=== PATIENT | female | born 1990 | race Caucasian/White ===

== ENCOUNTER 2017-05-06 20:56 | Emergency (ER) | payer OTHER ==
--- NOTE | 2017-05-06 21:05 | ED Physician Documentation ---
PD HPI ANIMAL BITE - Stated complaint Stated Complaint: CAT BITE - History obtained from History obtained from: Patient - History of Present Illness Location of injury(ies): LUE (distal forearm) Details of the event: Cat, Pet animal, Well appearing, Provoked Timing - onset: Today Worsened by: Palpating. 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: Endometriosis : Kidney stones, Other HEENT: None Psych: Depression, Anxiety, Bipolar disorder, Schizophrenia, Panic attacks Musculoskeletal: None Derm: None - Past Surgical History Past Surgical History: Yes General: Cholecystectomy /RF TEST ENGINEER: Tubal ligation, section HEENT: Tonsil/Adenoidectomy - Present Medications Home Medications: Ambulatory Orders Medication Instructions Recorded Confirmed Clonazepam 1 mg PO TID PRN 03/22/13 05/06/17 Prazosin HCl [Prazosin HCl] 15 mg PO BID 03/22/13 05/06/17 Alprazolam [Xanax] 1 mg PO TID PRN 05/12/15 05/06/17 Divalproex Sodium [Depakote] 250 mg PO BID 05/12/15 05/06/17 Sumatriptan Succinate [Imitrex] 50 mg PO Q4H PRN 05/12/15 05/06/17 Amox/Clav 875/125 [Augmentin] 1 each PO BID #10 tablet 05/06/17 Propranolol ER [Inderal LA] 50 mg PO DAILY 05/06/17 05/06/17 - Allergies Allergies/Adverse Reactions: Allergies Allergy/AdvReac Type Severity Reaction Status Date / Time No Known Drug Allergies Allergy Verified 05/12/15 11:55 - Social History Does the pt smoke?: No Smoking Status: Never smoker Does the pt drink ETOH?: Yes Does the pt have substance abuse?: No - Immunizations Immunizations are current?: Yes - POLST Patient has POLST: No PD ED PE NORMAL - Vitals Vital signs reviewed: Yes - General General: Alert and oriented X 3, No acute distress, Well developed/nourished - Derm Derm: Normal color, Warm and dry - Extremities Extremities: No tenderness to palpate, Normal ROM s pain, Other (left forearm with few small puncture wounds with mild tenderness and no bleeding. Holes are essentially closed. ) - Neuro Neuro: No motor deficit, No sensory deficit Results - Vitals Vitals: Oxygen O2 Source Room air PD MEDICAL DECISION MAKING - ED course Complexity details: considered differential (small puncture wounds. Discussed concern for infection. She needed tetanus booster as well. ), d/w patient Departure - Departure Disposition: 01 Home, Self Care Clinical Impression: Cat bite of left forearm Qualifiers: Encounter type: initial encounter Qualified Code(s): S51.852A - Open bite of left forearm, initial encounter Condition: Stable Record reviewed to determine appropriate education?: Yes Instructions: ED Bite Animal General Follow-Up: Kelsi Garcia DO [Primary Care Provider] - Prescriptions: Amox/Clav 875/125 [Augmentin] 1 each PO BID #10 tablet Comments: Augmentin twice daily for 5 days. Tylenol or Ibuprofen as needed for pains. Recheck if signs of infection. You got a Tetanus booster today as well. Discharge Date/Time: 05/06/17 21:34
[2017-05-06 21:10] VITALS: BP 145/92
[2017-05-06] MEDS ORDERED: TETANUS/DIPHTHERIA/PERTUSSIS 0.5 ML SYRINGE IM ONE ×2 (21:19→21:22)
[2017-05-06] MEDS ORDERED: AMOX/CLAV 875 MG/125 MG TABLET PO STA (21:19)
[2017-05-06] MEDS ORDERED: AMOX/CLAV 875 MG/125 MG TABLET PO ONE (21:21)
== END 2017-05-06 21:34 | disposition home or self-care (01) ==
LOC: ED 20:56
DX: S51.852A Open bite of left forearm, initial encounter (principal); W55.01XA Bitten by cat, initial encounter; Z23 Encounter for immunization
CPT/HCPCS: 90471; 90715; 99283; A9270

== ENCOUNTER 2018-05-29 13:07 | Emergency (ER) | payer OTHER ==
[2018-05-29 14:19] LABS: BILIRUBIN,URINE NEGATIVE (NEGATIVE); GLUCOSE, URINE (UA) NEGATIVE (NEGATIVE); KETONES,URINE (UA) NEGATIVE (NEGATIVE); LEUKOCYTE ESTERASE, URINE SMALL (NEGATIVE); NITRITE,URINE NEGATIVE (NEGATIVE); OCCULT BLOOD,URINE NEGATIVE (NEGATIVE); PH,URINE 8.5 PH (5.0-7.5); PROTEIN,URINE NEGATIVE (NEGATIVE); UROBILINOGEN,URINE 0.2 (NORMAL) E.U./dL (NORMAL)
[2018-05-29 14:21] LABS: CLARITY,URINE CLEAR (CLEAR); HCG UR QUAL NEGATIVE
[2018-05-29 14:47] LABS: BACTERIA,URINE Rare /HPF (None Seen); RBC,URINE 0-5 /HPF (0-5); SQUAMOUS EPITHELIAL CELL,UR MOD Squamous (<= Few)
[2018-05-29 14:48] LABS: AMORPHOUS SEDIMENT,UR Few /LPF
[2018-05-29] MEDS ORDERED: SODIUM CHLORIDE 0.9% 1,000 ML IV ONE (15:53)
--- NOTE | 2018-05-29 15:57 | ED Physician Documentation ---
PD HPI SYNCOPE - Stated complaint Stated Complaint: SEVERE DIZZINESS - Chief complaint Chief Complaint: Neuro - History obtained from History obtained from: Patient - History of Present Illness Timing - onset: Other (This is a 28-year-old woman with history of SVT on propranolol for same and a stable dose. 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 She did not sleep well last night and was sweating a lot and felt amped up. Today she felt lightheaded on standing and it never really went away after sitting down. There was no syncope. There is mild associated nausea but never any chest pain or trouble breathing.) Review of Systems Unable to obtain: Unresponsive Ten Systems: 10 systems reviewed and negative Constitutional: reports: Sweats. denies: Fever, Chills Cardiac: denies: Chest pain / pressure, Palpitations Respiratory: denies: Dyspnea, Cough GI: reports: Nausea. denies: Abdominal Pain, Vomiting : denies: Now [facility] PD PAST MEDICAL HISTORY - Past Medical History Cardiovascular: None Respiratory: None Endocrine/Autoimmune: None GI: None URGENT CARE: Endometriosis : Kidney stones, Other HEENT: None Psych: Depression, Anxiety, Bipolar disorder, Schizophrenia, Panic attacks Musculoskeletal: None Derm: None - Past Surgical History Past Surgical History: Yes General: Cholecystectomy /URGENT CARE: Tubal ligation, section HEENT: Tonsil/Adenoidectomy - Present Medications Home Medications: Ambulatory Orders Medication Instructions Recorded Confirmed Prazosin HCl [Prazosin HCl] 15 mg PO BID 03/22/13 05/06/17 Propranolol ER [Inderal LA] 50 mg PO DAILY 05/06/17 05/06/17 Lisdexamfetamine Dimesylate 05/29/18 [Vyvanse] Testosterone Cypionate 05/29/18 05/29/18 - Allergies Allergies/Adverse Reactions: Allergies Allergy/AdvReac Type Severity Reaction Status Date / Time No Known Drug Allergies Allergy Verified 05/29/18 13:29 - Social History Does the pt smoke?: No Smoking Status: Never smoker Does the pt drink ETOH?: Yes Does the pt have substance abuse?: No - Immunizations Immunizations are current?: Yes - POLST Patient has POLST: No PD ED PE NORMAL - Vitals Vital signs reviewed: Yes - General General: Alert and oriented X 3, No acute distress - HEENT HEENT: PERRL, EOMI - Neck Neck: Supple, no meningeal sign, No bony TTP - Cardiac Cardiac: RRR, No murmur - Respiratory Respiratory: No respiratory distress, Clear bilaterally - Abdomen Abdomen: Normal bowel sounds, Soft, Non tender - Back Back: No CVA TTP, No spinal TTP - Derm Derm: Normal color, Warm and dry - Extremities Extremities: No edema, No calf tenderness / cord - Neuro Neuro: Alert and oriented X 3, Normal speech - Psych Psych: Normal mood, Normal affect Results - Vitals Vitals: Vital Signs - 24 hr 05/29/18 13:25 Temperature 36 C L Heart Rate 73 Respiratory 20 Rate Blood Pressure 133/79 H O2 Saturation 97 Oxygen O2 Source Room air - EKG (time done) 1338 Rate: Rate (enter#) (68) Rhythm: NSR [place]: Normal Intervals: Normal CA QRS: Normal Ischemia: Normal ST segments Computer interpretation: Agree with computer - Labs Labs: Laboratory Tests 05/29/18 05/29/18 05/29/18 13:35 16:10 16:10 WBC 11.1 H RBC 5.26 Hgb 15.4 Hct 45.6 MCV 86.7 MCH 29.3 MCHC 33.8 RDW 14.2 Plt Count 259 MPV 9.1 Neut # (Auto) 6.3 Lymph # (Auto) 3.6 H [place] # (Auto) 0.7 Eos # (Auto) 0.4 Baso # (Auto) 0.1 Absolute Nucleated RBC 0.02 Nucleated RBC % 0.1 Sodium 136 Potassium 3.6 Chloride 101 Carbon Dioxide 26 Anion Gap 9.0 BUN 12 Creatinine 0.7 Estimated GFR (MDRD) 100 Glucose 92 Calcium 9.3 Total Bilirubin 0.5 AST 30 ALT 43 Alkaline Phosphatase 125 H Total Protein 7.7 Albumin 4.0 Globulin 3.7 Albumin/Globulin Ratio 1.1 Lipase 25 Urine Color YELLOW Urine Clarity CLEAR Urine pH 8.5 H Ur Specific [place] 1.015 Urine Protein NEGATIVE Urine Glucose (UA) NEGATIVE Urine Ketones NEGATIVE Urine Occult Blood NEGATIVE Urine Nitrite NEGATIVE Urine Bilirubin NEGATIVE Urine Urobilinogen 0.2 (NORMAL) Ur Leukocyte Esterase SMALL H Urine RBC 0-5 Urine WBC 4-5 Ur Squamous Epith Cells MOD Squamous H Amorphous Sediment Few Urine Bacteria Rare Ur Microscopic Review INDICATED Urine Culture Comments NOT INDICATED Urine HCG, Qual NEGATIVE PD MEDICAL DECISION MAKING - ED course ED course: 28-year-old woman with nonspecific positional lightheadedness most likely due to dehydration from sweats related to medication changes. No other emergency medical condition is identified. There is nothing in the history of physical to suggest PE. - Sepsis Event Vital Signs: Vital Signs - 24 hr 05/29/18 13:25 Temperature 36 C L Heart Rate 73 Respiratory 20 Rate Blood Pressure 133/79 H O2 Saturation 97 Oxygen O2 Source Room air Departure - Departure Disposition: 01 Home, Self Care Clinical Impression: Dizziness Condition: Good Record reviewed to determine appropriate education?: Yes Instructions: ED Near Syncope Unkn Comments: Call your doctor to arrange a follow-up appointment, make the next available appointment. In the interim, return anytime if worse or if new symptoms develop. Your blood pressure was elevated today on check into the emergency department. This does not mean that you have hypertension, it is a common phenomenon to come to the emergency department and have elevated blood pressure. I recommend that you see your primary care physician within the week to have it rechecked when you are feeling better.
[2018-05-29 16:18] LABS: BASOPHILS # (AUTO) 0.1 10^3/uL (0.0-0.1); BASOPHILS % (AUTO) 0.5 %; EOSINOPHILS # (AUTO) 0.4 10^3/uL (0.0-0.7); EOSINOPHILS % (AUTO) 3.8 %; HGB - HEMOGLOBIN 15.4 g/dL (12.0-16.0); LYMPHOCYTES # (AUTO) 3.6 10^3/uL (1.5-3.5); LYMPHOCYTES % (AUTO) 32.4 %; MEAN CORPUSCULAR HEMOGLOBIN 29.3 pg (27.0-31.0); MEAN CORPUSCULAR HGB CONC 33.8 g/dL (32.0-36.0); MEAN CORPUSCULAR VOLUME 86.7 fL (81.0-99.0); MEAN PLATELET VOLUME 9.1 fL (7.9-10.8); MONOCYTES # (AUTO) 0.7 10^3/uL (0.0-1.0); MONOCYTES % (AUTO) 6.2 %; NEUTROPHILS # (AUTO) 6.3 10^3/uL (1.5-6.6); NEUTROPHILS % (AUTO) 57.1 %; PLT - PLATELET COUNT 259 10^3/uL (130-450); RED BLOOD COUNT 5.26 10^6/uL (4.20-5.40); RED CELL DISTRIBUTION WIDTH 14.2 % (12.0-15.0); WHITE BLOOD COUNT 11.1 x10^3/uL (4.8-10.8)
[2018-05-29 16:31] LABS: ALBUMIN/GLOBULIN RATIO 1.1 (1.0-2.2); BILIRUBIN,TOTAL 0.5 mg/dL (0.2-1.0); CALCIUM 9.3 mg/dL (8.5-10.3); CREATININE 0.7 mg/dL (0.4-1.0); TOTAL PROTEIN 7.7 g/dL (6.7-8.2)
[2018-05-29 17:07] VITALS: BP 140/90
== END 2018-05-29 17:40 | disposition home or self-care (01) ==
LOC: ED 13:07
DX: R42 Dizziness and giddiness (principal); R03.0 Elevated blood-pressure reading, without diagnosis of hypertension
CPT/HCPCS: 36415; 80053; 81001; 81003; 81025; 83690; 85025; 87086; 93005; 96360; 99283